=== PATIENT | female | born 1935 | race Two or more races ===

== ENCOUNTER 2020-09-06 14:43 | Emergency (ER) | payer OTHER ==
[~2020-09-06] VITALS: Ht 152.4 cm; Wt 61.2 kg
[2020-09-06 15:07] LABS: Urine Bacteria FEW /hpf (None Seen); Urine Blood Negative /uL (Negative); Urine WBC 16 /hpf (0 - 5)
[2020-09-06] MEDS ORDERED: cefTRIAXone SOD 1,000 MG VL IM ONE (17:15)
[2020-09-06] MEDS ORDERED: PHENAZOPYRIDINE HCL 100 MG TAB PO ONE (17:15)
[2020-09-06 18:15] VITALS: BP 155/90
== END 2020-09-06 18:20 | disposition home or self-care (01) ==
LOC: ER 14:43
DX: N30.00 Acute cystitis without hematuria (principal)
CPT/HCPCS: 81001; 96372; 99283; J0696